=== PATIENT | male | born 1940 | race Caucasian/White ===

== ENCOUNTER 2016-12-07 11:39 | Emergency (ER) | payer MEDICARE, BC ==
[2014-05-04 12:06] VITALS: BMI 25.1
[~2016-12-07 11:39] MED LIST: ASPIRIN EC81 M1 PO; LEVOXYL75 MCG PO; OMEPRAZOLE PO; PEPCID40 MG PO; QUESTRAN LIG1 PACKET; SERTRALINE PO; SPIRIVA18 MCG INH; VENTOLIN HFA18 GM INH; WELLBUTRIN75 MG PO; ZOCOR40 MG PO
[2016-12-07 14:44] LABS: BASOPHILS 0.1 % (0-2); EOSINOPHILS 0.1 % (0-7); HEMATOCRIT 39.3 % (42.0-54.0); HEMOGLOBIN 13.6 g/dL (13.5-17.5); IMMATURE GRANULOCYTES 0.3 % (0-5); LYMPHOCYTES 3.3 % (15-50); MCH 33.6 pg (26.0-34.0); MCHC 34.6 g/dL (31.0-37.0); MEAN PLATELET VOLUME 11.5 fL (7.4-10.4); MONOCYTES 8.4 % (2-11); NEUTROPHILS 87.8 % (40-80); PLATELET COUNT 163 10x3/uL (130-400); RBC 4.05 10x6/uL (4.20-6.10); RDW 13.9 % (11.5-14.5); WBC 13.1 10x3/uL (4.8-10.8)
[2016-12-07 14:57] LABS: ANION GAP 10.9 mmol/L (8-16); BILIRUBIN - TOTAL 0.74 mg/dL (0.2-1.3); CALCIUM 8.6 mg/dL (8.5-10.1); CREATININE - SERUM 1.5 mg/dL (0.6-1.3); POTASSIUM - SERUM 3.9 mmol/L (3.5-5.1); PROTEIN - SERUM 7.8 g/dL (6.4-8.2)
== END 2016-12-07 17:19 | disposition home or self-care (01) ==
LOC: D.ER 11:39
PROVIDERS: Physician Assistant
DX: J44.1 Chronic obstructive pulmonary disease with (acute) exacerbation (principal); R53.1 Weakness; Z85.21 Personal history of malignant neoplasm of larynx

== ENCOUNTER 2017-05-13 18:07 | Inpatient (IN) | payer MEDICARE, BC ==
[~2017-05-13] VITALS: Ht 182.9 cm; Wt 65.8 kg
[2017-05-13 18:47] LABS: BASOPHILS 0.1 % (0-2); EOSINOPHILS 0.1 % (0-7); HEMATOCRIT 38.3 % (42.0-54.0); HEMOGLOBIN 12.9 g/dL (13.5-17.5); IMMATURE GRANULOCYTES 0.3 % (0-5); LYMPHOCYTES 3.6 % (15-50); MCH 31.9 pg (26.0-34.0); MCHC 33.7 g/dL (31.0-37.0); MCV 94.8 fL (80.0-100.0); MEAN PLATELET VOLUME 10.2 fL (7.4-10.4); MONOCYTES 1.8 % (2-11); NEUTROPHILS 94.1 % (40-80); RBC 4.04 10x6/uL (4.20-6.10); WBC 15.8 10x3/uL (4.8-10.8)
[2017-05-13 18:58] LABS: PLATELET COUNT 284 10x3/uL (130-400)
[2017-05-13 19:14] LABS: ALBUMIN 2.9 g/dL (3.4-5.0); ANION GAP 14.6 mmol/L (8-16); BILIRUBIN - TOTAL 0.45 mg/dL (0.2-1.3); CALCIUM 8.5 mg/dL (8.5-10.1); CARBON DIOXIDE 28.8 mmol/L (21.0-32.0); CREATININE - SERUM 1.4 mg/dL (0.6-1.3); POTASSIUM - SERUM 4.4 mmol/L (3.5-5.1); PROTEIN - SERUM 7.1 g/dL (6.4-8.2)
[2017-05-13 21:48] LABS: APPEARANCE CLEAR (CLEAR); BILIRUBIN NEGATIVE (NEGATIVE); COLOR DK YELLOW (YELLOW); GLUCOSE NEGATIVE (NEGATIVE); KETONE NEGATIVE (NEGATIVE); NITRITE NEGATIVE (NEGATIVE); PROTEIN TRACE mg/dL (NEGATIVE); SPECIFIC GRAVITY 1.005 (1.005-1.020); UROBILINOGEN NORMAL (NORMAL)
[2017-05-14] VITALS (7 sets, daily range): BP systolic 92–134; BP diastolic 49–71; Ht 182.9 cm; Wt 65.8 kg
[2017-05-14 05:42] LABS: BASOPHILS 0 % (0-2); EOSINOPHILS 0 % (0-7); HEMATOCRIT 34.7 % (42.0-54.0); HEMOGLOBIN 11.5 g/dL (13.5-17.5); IMMATURE GRANULOCYTES 0.2 % (0-5); LYMPHOCYTES 2.5 % (15-50); MCH 31.3 pg (26.0-34.0); MCHC 33.1 g/dL (31.0-37.0); MCV 94.6 fL (80.0-100.0); MEAN PLATELET VOLUME 10.1 fL (7.4-10.4); MONOCYTES 0.5 % (2-11); NEUTROPHILS 96.8 % (40-80); PLATELET COUNT 243 10x3/uL (130-400); RBC 3.67 10x6/uL (4.20-6.10); RDW 13.1 % (11.5-14.5); WBC 12.9 10x3/uL (4.8-10.8)
[2017-05-14 06:11] LABS: ALBUMIN 2.3 g/dL (3.4-5.0); ANION GAP 16.3 mmol/L (8-16); BILIRUBIN - TOTAL 0.4 mg/dL (0.2-1.3); CALCIUM 8.5 mg/dL (8.5-10.1); CREATININE - SERUM 1.3 mg/dL (0.6-1.3); POTASSIUM - SERUM 4.3 mmol/L (3.5-5.1)
[2017-05-15 04:03] VITALS: BP 98/50
[2017-05-15 05:26] LABS: BASOPHILS 0 % (0-2); EOSINOPHILS 0 % (0-7); HEMATOCRIT 31.9 % (42.0-54.0); HEMOGLOBIN 10.4 g/dL (13.5-17.5); IMMATURE GRANULOCYTES 0.2 % (0-5); LYMPHOCYTES 1.6 % (15-50); MCH 30.6 pg (26.0-34.0); MCHC 32.6 g/dL (31.0-37.0); MCV 93.8 fL (80.0-100.0); MEAN PLATELET VOLUME 10.6 fL (7.4-10.4); MONOCYTES 1.3 % (2-11); NEUTROPHILS 96.9 % (40-80); PLATELET COUNT 230 10x3/uL (130-400); RDW 12.8 % (11.5-14.5); WBC 13.5 10x3/uL (4.8-10.8)
[2017-05-15 05:46] LABS: ALBUMIN 2.3 g/dL (3.4-5.0); BILIRUBIN - TOTAL 0.26 mg/dL (0.2-1.3); CALCIUM 8.2 mg/dL (8.5-10.1); CARBON DIOXIDE 24.1 mmol/L (21.0-32.0); CREATININE - SERUM 1.3 mg/dL (0.6-1.3); PHOSPHOROUS 2.5 mg/dL (2.5-4.9); POTASSIUM - SERUM 4.1 mmol/L (3.5-5.1); PRE-ALBUMIN 15.8 mg/dL (18.0-35.7); PROTEIN - SERUM 6.6 g/dL (6.4-8.2)
[2017-05-15 07:42] VITALS: BP 97/48
[2017-05-15] MEDS ORDERED: SYNTHROID125 MCG PO (11:55)
[2017-05-15 15:35] VITALS: BP 103/49
[2017-05-15 21:13] VITALS: BP 102/47
[2017-05-15 23:47] VITALS: BP 119/61
[2017-05-16 04:00] VITALS: BP 118/53
[2017-05-16 08:37] VITALS: BP 103/49
[2017-05-16 11:39] VITALS: BP 108/55
[2017-05-16 15:40] VITALS: BP 108/45
[2017-05-16 20:41] VITALS: BP 116/53
[2017-05-17 00:50] VITALS: BP 137/70
[2017-05-17 04:30] VITALS: BP 138/74
[2017-05-17 08:19] VITALS: BP 131/86
[2017-05-17 11:13] LABS: BASOPHILS 0 % (0-2); EOSINOPHILS 0 % (0-7); HEMATOCRIT 35.4 % (42.0-54.0); HEMOGLOBIN 11.6 g/dL (13.5-17.5); IMMATURE GRANULOCYTES 0.7 % (0-5); LYMPHOCYTES 2.4 % (15-50); MCH 31.2 pg (26.0-34.0); MCHC 32.8 g/dL (31.0-37.0); MCV 95.2 fL (80.0-100.0); MEAN PLATELET VOLUME 11.1 fL (7.4-10.4); MONOCYTES 6.5 % (2-11); NEUTROPHILS 90.4 % (40-80); PLATELET COUNT 255 10x3/uL (130-400); RBC 3.72 10x6/uL (4.20-6.10); RDW 13.2 % (11.5-14.5); WBC 11.6 10x3/uL (4.8-10.8)
[2017-05-17 11:36] LABS: ALBUMIN 2.5 g/dL (3.4-5.0); ANION GAP 9.9 mmol/L (8-16); BILIRUBIN - TOTAL 0.39 mg/dL (0.2-1.3); CALCIUM 8.5 mg/dL (8.5-10.1); CARBON DIOXIDE 29.9 mmol/L (21.0-32.0); CREATININE - SERUM 1.2 mg/dL (0.6-1.3); POTASSIUM - SERUM 3.8 mmol/L (3.5-5.1)
[2017-05-17 13:21] VITALS: BP 138/72
[2017-05-17 16:32] VITALS: BP 144/84
[2017-05-17 20:00] VITALS: BP 130/68
[2017-05-18] VITALS: BP 123/68
[2017-05-18 04:00] VITALS: BP 136/62
[2017-05-18 04:35] LABS: BASOPHILS 0.1 % (0-2); EOSINOPHILS 0 % (0-7); HEMATOCRIT 34.1 % (42.0-54.0); HEMOGLOBIN 11.3 g/dL (13.5-17.5); IMMATURE GRANULOCYTES 1.3 % (0-5); LYMPHOCYTES 3.8 % (15-50); MCH 31.1 pg (26.0-34.0); MCHC 33.1 g/dL (31.0-37.0); MCV 93.9 fL (80.0-100.0); MEAN PLATELET VOLUME 10.9 fL (7.4-10.4); MONOCYTES 6.7 % (2-11); NEUTROPHILS 88.1 % (40-80); PLATELET COUNT 229 10x3/uL (130-400); RBC 3.63 10x6/uL (4.20-6.10); WBC 9.1 10x3/uL (4.8-10.8)
[2017-05-18 04:52] LABS: ALBUMIN 2.3 g/dL (3.4-5.0); BILIRUBIN - TOTAL 0.25 mg/dL (0.2-1.3); CALCIUM 8.2 mg/dL (8.5-10.1); CREATININE - SERUM 1.3 mg/dL (0.6-1.3); PROTEIN - SERUM 6.4 g/dL (6.4-8.2)
[2017-05-18 08:46] VITALS: BP 109/51
[2017-05-18 12:05] VITALS: BP 115/60
[2017-05-18 16:52] VITALS: BP 124/64
[2017-05-18 20:00] VITALS: BP 135/69
[2017-05-19 04:00] VITALS: BP 143/73
[2017-05-19 05:10] LABS: BASOPHILS 0.1 % (0-2); EOSINOPHILS 0 % (0-7); HEMATOCRIT 36.2 % (42.0-54.0); HEMOGLOBIN 11.8 g/dL (13.5-17.5); IMMATURE GRANULOCYTES 1.8 % (0-5); LYMPHOCYTES 4.9 % (15-50); MCH 31.1 pg (26.0-34.0); MCHC 32.6 g/dL (31.0-37.0); MCV 95.5 fL (80.0-100.0); MEAN PLATELET VOLUME 11.2 fL (7.4-10.4); MONOCYTES 6.6 % (2-11); NEUTROPHILS 86.6 % (40-80); PLATELET COUNT 238 10x3/uL (130-400); RBC 3.79 10x6/uL (4.20-6.10); RDW 13.2 % (11.5-14.5); WBC 7.8 10x3/uL (4.8-10.8)
[2017-05-19 05:22] LABS: ALBUMIN 2.5 g/dL (3.4-5.0); BILIRUBIN - TOTAL 0.3 mg/dL (0.2-1.3); CALCIUM 8.4 mg/dL (8.5-10.1); CREATININE - SERUM 1.2 mg/dL (0.6-1.3); PROTEIN - SERUM 6.5 g/dL (6.4-8.2)
[2017-05-19 08:09] VITALS: BP 139/65
[2017-05-19 11:48] VITALS: BP 132/68
[2017-05-19 15:56] VITALS: BP 107/59
[2017-05-19 21:24] VITALS: BP 122/65
[2017-05-20 04:04] VITALS: BP 159/74
[2017-05-20 04:17] VITALS: BP 159/74
[2017-05-20 05:41] LABS: BASOPHILS 0.1 % (0-2); EOSINOPHILS 0 % (0-7); HEMOGLOBIN 11.4 g/dL (13.5-17.5); IMMATURE GRANULOCYTES 1.5 % (0-5); MCHC 32.6 g/dL (31.0-37.0); MCV 95.1 fL (80.0-100.0); MEAN PLATELET VOLUME 11.4 fL (7.4-10.4); MONOCYTES 5.7 % (2-11); NEUTROPHILS 87.7 % (40-80); PLATELET COUNT 219 10x3/uL (130-400); RBC 3.68 10x6/uL (4.20-6.10); RDW 13.3 % (11.5-14.5); WBC 9.4 10x3/uL (4.8-10.8)
[2017-05-20 05:57] LABS: ALBUMIN 2.3 g/dL (3.4-5.0); ANION GAP 12.2 mmol/L (8-16); BILIRUBIN - TOTAL 0.2 mg/dL (0.2-1.3); CALCIUM 8.3 mg/dL (8.5-10.1); CREATININE - SERUM 1.2 mg/dL (0.6-1.3); POTASSIUM - SERUM 4.2 mmol/L (3.5-5.1); PROTEIN - SERUM 6.2 g/dL (6.4-8.2)
[2017-05-20 08:32] VITALS: BP 129/63
[2017-05-20 11:38] VITALS: BP 149/84
[2017-05-20] MEDS ORDERED: MIRALAX17 GM PO (11:48)
[2017-05-20] MEDS ORDERED: PEPCID20 MG PO (11:48)
[2017-05-20] MEDS ORDERED: FLORAJEN3 CAPS460 MG PO (11:48)
[2017-05-20] MEDS ORDERED: PULMICORT0.5 MG/21 UPD (11:49)
[2017-05-20] MEDS ORDERED: BENZONATATE200 MG PO (11:49)
[2017-05-20] MEDS ORDERED: BROVANA15 MCG/2 M INH (11:49)
[2017-05-20] MEDS ORDERED: ROBITUSSIN DM 110 ML PO (11:49)
[2017-05-20] MEDS ORDERED: PREDNISONE10 MG PO (11:51)
[2017-05-20] MEDS ORDERED: Wellbutrin PO (11:51)
[2017-05-20] MEDS ORDERED: Astelin NASAL SPRAY NASAL (11:51)
[2017-05-20] MEDS ORDERED: DOXYCYCLINE HY100 M2 PO (12:21)
== END 2017-05-20 13:22 | disposition home health service (06) | DRG 177 ==
LOC: D.ER 18:07 → D.EDHOLD 23:55 → D.MS 23:55
PROVIDERS: Emergency Medicine; Family Medicine; Internal Medicine Pulmonary Disease; Nurse Practitioner Family
DX: J15.6 Pneumonia due to other Gram-negative bacteria (principal); G93.41 Metabolic encephalopathy; J44.0 Chronic obstructive pulmonary disease with (acute) lower respiratory infection; J96.11 Chronic respiratory failure with hypoxia; E44.0 Moderate protein-calorie malnutrition; Z68.1 Body mass index [BMI] 19.9 or less, adult; J44.1 Chronic obstructive pulmonary disease with (acute) exacerbation; J20.9 Acute bronchitis, unspecified; K57.90 Diverticulosis of intestine, part unspecified, without perforation or abscess without bleeding; G47.33 Obstructive sleep apnea (adult) (pediatric); E78.5 Hyperlipidemia, unspecified; K21.9 Gastro-esophageal reflux disease without esophagitis; E03.9 Hypothyroidism, unspecified; K58.9 Irritable bowel syndrome, unspecified; J15.212 Pneumonia due to Methicillin resistant Staphylococcus aureus; N18.9 Chronic kidney disease, unspecified; Z87.891 Personal history of nicotine dependence; Z85.21 Personal history of malignant neoplasm of larynx; D64.9 Anemia, unspecified; R13.10 Dysphagia, unspecified; F41.9 Anxiety disorder, unspecified; J30.9 Allergic rhinitis, unspecified; G47.00 Insomnia, unspecified; K22.2 Esophageal obstruction

== ENCOUNTER 2017-08-21 08:44 | Inpatient (IN) | payer MEDICARE, BC ==
[2017-08-21] VITALS (7 sets, daily range): BP systolic 95–115; BP diastolic 51–67; BMI 18.9
[~2017-08-21] VITALS: Ht 182.9 cm; Wt 80.1 kg
--- NOTE | ~2017-08-21 | OP ---
PATIENT NAME: KEILA VALLEJO MEDICAL RECORD: [id number] :36 LOCATION:D.M2 D.2101 ADMISSION DATE:08/21/17 SURGEON: MARIA EUGENIA STOUT MD DATE OF OPERATION: 09/03/2017 PREOPERATIVE DIAGNOSES: 1. Bkxhq-sv-iwnbnsf renal failure. 2. Chronic obstructive pulmonary disease. 3. 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 4. Dysphagia. 5. Severe protein-calorie malnutrition. 6. Hypothyroidism. 7. Gastroesophageal reflux disease. POSTOPERATIVE DIAGNOSES: 1. Atrlg-ha-hskzfvc renal failure. 2. Chronic obstructive pulmonary disease. 3. 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 4. Dysphagia. 5. Severe protein-calorie malnutrition. 6. Hypothyroidism. 7. Gastroesophageal reflux disease. PROCEDURE: 1. Right IJ 19 cm HemoSplit placement. 2. Fluoroscopic interpretation. SURGEON: Maria Eugenia Stout MD REPORT OF PROCEDURE: The patient's right chest and indwelling right IJ Trialysis catheter were all prepped and draped in sterile fashion. The Trialysis catheter was released from its sutures and a wire was placed down through it. The Trialysis catheter was then removed and the wire left in position. Fluoroscopy was used to note that the wire was in good position in the venous system. A total of 10 mL of 1% lidocaine with epinephrine was infused in the surrounding tissues on the right chest and the 19-cm HemoSplit catheter was tunneled between an incision on the right chest and the wire exit site in the neck. The dilator trocar device was then placed over the wire and the wire and dilator were removed. The catheter tips were advanced through the trocar. The trocar was then removed and the catheter was pulled back into position to where it rested at the right atrial superior vena caval junction. The catheter aspirated nonpulsatile dark blood and flushed easily with heparinized saline. This was then sutured into place with 4-0 nylons and the skin incisions were closed with subcutaneous 5-0 Monocryl. COMPLICATIONS: None. CONDITION: Stable. ANESTHESIA: Local MAC. BLOOD LOSS: 30 mL. TRANSINT:[id number] Voice Confirmation ID: [id number] DOCUMENT ID: [id number] OPERATIVE REPORT [id number] KEILA VALLEJO MARIA EUGENIA STOUT MD at 0801 CC: [id number] DICTATION DATE: 09/03/17 1030 PUDDLER PILE DRIVING: 09/03/17 1122 ADM IN [facility] [address] [place], [facility]
--- NOTE | ~2017-08-21 | EC ---
PATIENT:KEILA VALLEJO DATE OF SERVICE: 08/21/17 SEX: M MEDICAL RECORD: [id number] DATE OF : 36 LOCATION:D.M2 D.212 AGE OF PATIENT: 77 ADMISSION DATE: 08/21/17 REFERRING PHYSICIAN: INTERPRETING PHYSICIAN: ROSA HOGAN MD ECHOCARDIOGRAM REPORT ECHO CHARGES 4 ECHO COMPLETE Date: 08/21 CLINICAL DIAGNOSIS: R/O CHF ECHOCARDIOGRAPHIC MEASUREMENTS (adult normal given) AC root (d.<3.7cm) 3.4 cm LV Septum d (<1.2 cm> 1.2 cm Valve Excursion 1.3 cm LV Septum (systole) 1.5 cm Left Atria (s.<4.0cm> 2.3 cm LVPW d(<1.2cm) 1.2 cm RV (d.<2.3cm) 2.2 cm LVPW (sytole) 1.8 cm LV diastole(<5.6CM) 4.8 cm MV E-F(>70mm/sec) cm LV systole 3.1 cm LVOT Diameter 1.7 cm MV exc.(>10mm) cm Est.ejection fraction (50-75%) % DOPPLER: LVIT cm/sec A 107 cm/sec E 74.0 cm/sec LA cm/sec RVSP 27.1 mmHg LVOT 91.0 cm/sec AOP1/2T 507.0m/s Asc. Ao 153 cm/sec RVOT 55.0 cm/sec RA cm/sec PA 76.0 cm/sec AV Gradient Peak 9.4 mmHg AV Mean 4.7 mmHg AV Area 1.1 cm MV Gradient Peak 6.0 mmHg MV Mean 1.8 mmHg MV Area cm COMMENTS: Mortician Helper: 1 CAMILA GARCIAOE Surveillance Specialist: 3 Dr. Crisostomo TAPE# PACS Pericardial Effusion N DATE OF SERVICE: Adequate 2-D echo, color flow and spectral Doppler, and M-mode. Borderline LVH. LV internal dimension is normal. LV appears to be mildly globally hypo with EF only mildly reduced. Estimated EF 45% to 50%. Aortic valve is tricuspid. No evidence of stenosis by Doppler interrogation. Left atrium normal at 2.3 cm. Mitral valve shows no prolapse. Trivial MR. Right-sided chambers are normal. Mild TR. ECHOCARDIOGRAM REPORT [id number] KEILA VALLEJO TRANSINT:[id number] Voice Confirmation ID: [id number] DOCUMENT ID: [id number] ROSA HOGAN MD at 0816 CC: [id number] DICTATION DATE: 08/22/17 0857 TEMPORARY HELP AGENCY REFERRAL CLERK: 08/22/17 1454 ADM IN [facility] [id number] [place] [address]
[~2017-08-21 08:44] MED LIST changes: +Astelin NASAL SPRAY NASAL; +BENZONATATE200 MG PO; +BROVANA15 MCG/2 M INH; +DOXYCYCLINE HY100 M2 PO; +FLORAJEN3 CAPS460 MG PO; +MIRALAX17 GM PO; +PEPCID20 MG PO; +PREDNISONE10 MG PO; +PULMICORT0.5 MG/21 UPD; +ROBITUSSIN DM 110 ML PO; +SYNTHROID125 MCG PO; +Wellbutrin PO
[2017-08-21] MEDS ORDERED: LEVOXYL100 MCG PO (08:51)
[2017-08-21] MEDS ORDERED: PROVENTIL/2.5 MG/3 M INH (08:52)
[2017-08-21] MEDS ORDERED: MUCOMYST 20200 MG/M2 INH (08:53)
[2017-08-21] MEDS ORDERED: REMERON45 MG PO (08:54)
[2017-08-21] MEDS ORDERED: FLOMAX0.4 MG PO (08:55)
[2017-08-21 09:29] LABS: BASOPHILS 0.2 % (0-2); EOSINOPHILS 0 % (0-7); HEMATOCRIT 36.6 % (42.0-54.0); HEMOGLOBIN 12.3 g/dL (13.5-17.5); IMMATURE GRANULOCYTES 4.8 % (0-5); LYMPHOCYTES 6.7 % (15-50); MCH 30.7 pg (26.0-34.0); MCHC 33.6 g/dL (31.0-37.0); MCV 91.3 fL (80.0-100.0); MEAN PLATELET VOLUME 10.5 fL (7.4-10.4); MONOCYTES 3.6 % (2-11); NEUTROPHILS 84.7 % (40-80); RBC 4.01 10x6/uL (4.20-6.10); RDW 14.2 % (11.5-14.5); WBC 4.2 10x3/uL (4.8-10.8)
[2017-08-21 09:31] LABS: PLATELET COUNT 136 10x3/uL (130-400)
[2017-08-21 09:44] LABS: ALBUMIN 2.8 g/dL (3.4-5.0); ANION GAP 12.5 mmol/L (8-16); BILIRUBIN - TOTAL 0.34 mg/dL (0.2-1.3); CALCIUM 9.1 mg/dL (8.5-10.1); CARBON DIOXIDE 24.7 mmol/L (21.0-32.0); CREATININE - SERUM 2.1 mg/dL (0.6-1.3); POTASSIUM - SERUM 4.2 mmol/L (3.5-5.1); PROTEIN - SERUM 7.8 g/dL (6.4-8.2)
[2017-08-21 11:18] LABS: % SATURATION 13 % (15-55); IRON 23 ug/dl (35-150); TOTAL IRON BIND CAPACITY 171 ug/dl (260-445); UNSAT IRON BIND CAPACITY 148 ug/dl (150-375)
[2017-08-21 11:56] LABS: MAGNESIUM - SERUM 1.8 mg/dL (1.8-2.4); T4 THYROXIN - FREE 1.08 ng/dL (0.76-1.46); THYROID STIMULATING HORMONE 6.14 uIU/mL (0.36-3.74)
[2017-08-21] MEDS ORDERED: SINGULAIR5 MG PO (13:48)
[2017-08-22 05:54] LABS: ALBUMIN 2.5 g/dL (3.4-5.0); ANION GAP 13.1 mmol/L (8-16); BILIRUBIN - TOTAL 0.38 mg/dL (0.2-1.3); CALCIUM 8.5 mg/dL (8.5-10.1); CARBON DIOXIDE 23.7 mmol/L (21.0-32.0); CREATININE - SERUM 1.8 mg/dL (0.6-1.3); POTASSIUM - SERUM 3.8 mmol/L (3.5-5.1); PRE-ALBUMIN 14.7 mg/dL (18.0-35.7); PROTEIN - SERUM 7.1 g/dL (6.4-8.2)
[2017-08-22 05:56] LABS: BASOPHILS 0.3 % (0-2); EOSINOPHILS 0 % (0-7); HEMATOCRIT 33.3 % (42.0-54.0); HEMOGLOBIN 11.2 g/dL (13.5-17.5); IMMATURE GRANULOCYTES 2.1 % (0-5); LYMPHOCYTES 9.2 % (15-50); MCH 30.4 pg (26.0-34.0); MCHC 33.6 g/dL (31.0-37.0); MCV 90.5 fL (80.0-100.0); MEAN PLATELET VOLUME 11.3 fL (7.4-10.4); MONOCYTES 3.1 % (2-11); NEUTROPHILS 85.3 % (40-80); RBC 3.68 10x6/uL (4.20-6.10); RDW 14.2 % (11.5-14.5); WBC 3.3 10x3/uL (4.8-10.8)
[2017-08-22 05:57] LABS: PLATELET COUNT 108 10x3/uL (130-400)
[2017-08-22 06:14] VITALS: BP 108/56
[2017-08-22 06:33] VITALS: BP 143/79
[2017-08-22 07:40] VITALS: BP 105/50
[2017-08-22 11:19] VITALS: BP 120/48
[2017-08-22 15:35] VITALS: BP 95/51
[2017-08-22 15:45] LABS: APPEARANCE HAZY (CLEAR); COLOR DK YELLOW (YELLOW); GLUCOSE NEGATIVE (NEGATIVE); NITRITE NEGATIVE (NEGATIVE); PROTEIN 1+ mg/dL (NEGATIVE); SPECIFIC GRAVITY 1.015 (1.005-1.020)
[2017-08-22 15:46] LABS: BILIRUBIN NEGATIVE (NEGATIVE); KETONE NEGATIVE (NEGATIVE); UROBILINOGEN NORMAL (NORMAL)
[2017-08-22 15:47] LABS: BACTERIA MODERATE /hpf (NONE SEEN); EPITHELIAL CELLS 0-5 /hpf (0-5); RED CELLS - URINE 0-5 /hpf (0-5); WHITE CELLS - URINE 0-5 /hpf (0-5)
[2017-08-22 15:48] LABS: AMORPHOUS SEDIMENT <1+ /lpf (NONE SEEN)
[2017-08-22 20:21] VITALS: BP 100/57
[2017-08-23 02:14] VITALS: BP 125/66
[2017-08-23 05:15] VITALS: BP 130/67
[2017-08-23 06:31] LABS: BASOPHILS 0.6 % (0-2); EOSINOPHILS 0 % (0-7); HEMATOCRIT 32.7 % (42.0-54.0); HEMOGLOBIN 10.8 g/dL (13.5-17.5); IMMATURE GRANULOCYTES 0.9 % (0-5); MCH 29.8 pg (26.0-34.0); MCV 90.1 fL (80.0-100.0); MEAN PLATELET VOLUME 11.7 fL (7.4-10.4); MONOCYTES 6.1 % (2-11); NEUTROPHILS 77.4 % (40-80); RBC 3.63 10x6/uL (4.20-6.10); RDW 14.4 % (11.5-14.5); WBC 3.3 10x3/uL (4.8-10.8)
[2017-08-23 06:35] LABS: PLATELET COUNT 73 10x3/uL (130-400)
[2017-08-23 06:58] LABS: ANION GAP 13.2 mmol/L (8-16); BILIRUBIN - TOTAL 0.51 mg/dL (0.2-1.3); CARBON DIOXIDE 23.4 mmol/L (21.0-32.0); CREATININE - SERUM 1.5 mg/dL (0.6-1.3); POTASSIUM - SERUM 3.6 mmol/L (3.5-5.1); PROTEIN - SERUM 6.3 g/dL (6.4-8.2)
[2017-08-23 08:14] LABS: PLATELET ESTIMATE DECREASED
[2017-08-23 08:34] VITALS: BP 129/66
[2017-08-23 12:24] VITALS: BMI 18.8
[2017-08-23 16:34] VITALS: BP 134/72
[2017-08-24 04:47] LABS: ALBUMIN 1.8 g/dL (3.4-5.0); ANION GAP 15.4 mmol/L (8-16); BILIRUBIN - TOTAL 0.4 mg/dL (0.2-1.3); CALCIUM 7.6 mg/dL (8.5-10.1); CARBON DIOXIDE 22.4 mmol/L (21.0-32.0); POTASSIUM - SERUM 3.8 mmol/L (3.5-5.1); PROTEIN - SERUM 5.9 g/dL (6.4-8.2)
[2017-08-24 05:22] LABS: BASOPHILS 0.3 % (0-2); EOSINOPHILS 0 % (0-7); HEMATOCRIT 30.6 % (42.0-54.0); IMMATURE GRANULOCYTES 0.5 % (0-5); LYMPHOCYTES 16.8 % (15-50); MCH 29.2 pg (26.0-34.0); MCHC 32.7 g/dL (31.0-37.0); MCV 89.2 fL (80.0-100.0); MEAN PLATELET VOLUME 12.8 fL (7.4-10.4); MONOCYTES 2.8 % (2-11); NEUTROPHILS 79.6 % (40-80); RBC 3.43 10x6/uL (4.20-6.10); RDW 14.8 % (11.5-14.5); WBC 3.9 10x3/uL (4.8-10.8)
[2017-08-24 05:30] LABS: PLATELET COUNT 49 10x3/uL (130-400)
[2017-08-24 06:02] VITALS: BP 127/63
[2017-08-24 08:47] VITALS: BP 136/73
[2017-08-24 12:38] VITALS: BP 118/56
[2017-08-24 13:17] LABS: FOLATE (FOLIC ACID) - SERUM 15.6 ng/mL (>3.0)
[2017-08-24 16:27] VITALS: BP 107/45
[2017-08-24 22:07] VITALS: BP 93/43
[2017-08-25] VITALS (7 sets, daily range): BP systolic 83–118; BP diastolic 41–58; Ht 182.9 cm; Wt 80.1 kg
[2017-08-25 05:45] LABS: BASOPHILS 0.2 % (0-2); EOSINOPHILS 0 % (0-7); HEMATOCRIT 28.5 % (42.0-54.0); HEMOGLOBIN 9.5 g/dL (13.5-17.5); IMMATURE GRANULOCYTES 0.5 % (0-5); LYMPHOCYTES 8.1 % (15-50); MCH 29.5 pg (26.0-34.0); MCHC 33.3 g/dL (31.0-37.0); MCV 88.5 fL (80.0-100.0); MONOCYTES 3.5 % (2-11); NEUTROPHILS 87.7 % (40-80); RBC 3.22 10x6/uL (4.20-6.10)
[2017-08-25 06:07] LABS: ALBUMIN 1.5 g/dL (3.4-5.0); ANION GAP 17.2 mmol/L (8-16); BILIRUBIN - TOTAL 0.41 mg/dL (0.2-1.3); CALCIUM 7.2 mg/dL (8.5-10.1); CARBON DIOXIDE 19.5 mmol/L (21.0-32.0); POTASSIUM - SERUM 3.7 mmol/L (3.5-5.1); PROTEIN - SERUM 5.1 g/dL (6.4-8.2)
[2017-08-25 06:26] LABS: WBC 5.8 10x3/uL (4.8-10.8)
[2017-08-25 06:27] LABS: PLATELET COUNT 34 10x3/uL (130-400)
[2017-08-25 07:15] LABS: APPEARANCE SLT CLOUDY (CLEAR); BILIRUBIN NEGATIVE (NEGATIVE); COLOR YELLOW (YELLOW); GLUCOSE NEGATIVE (NEGATIVE); KETONE NEGATIVE (NEGATIVE); NITRITE NEGATIVE (NEGATIVE); PROTEIN 1+ mg/dL (NEGATIVE); SPECIFIC GRAVITY 1.015 (1.005-1.020); UROBILINOGEN NORMAL (NORMAL); WHITE CELLS - URINE 0-5 /hpf (0-5)
[2017-08-25 07:16] LABS: AMORPHOUS SEDIMENT <1+ /lpf (NONE SEEN); BACTERIA MODERATE /hpf (NONE SEEN); EPITHELIAL CELLS 0-5 /hpf (0-5); GRANULAR CAST 0-5 /lpf (NONE SEEN); MUCUS <1+ /lpf (NONE SEEN); RED CELLS - URINE 0-5 /hpf (0-5)
[2017-08-25 11:44] LABS: INR 2.43 (0.85-1.17); PROTIME 25.8 SECONDS (11.6-15.0)
[2017-08-25 14:42] LABS: APTT 76.8 SECONDS (22.8-39.4)
[2017-08-25 15:43] LABS: ERYTHROCYTE SEDIMENTATION RATE 47 mm/hr (0-20)
[2017-08-26 05:53] LABS: BASOPHILS 0.2 % (0-2); EOSINOPHILS 0 % (0-7); HEMATOCRIT 23.3 % (42.0-54.0); HEMOGLOBIN 7.8 g/dL (13.5-17.5); IMMATURE GRANULOCYTES 0.4 % (0-5); LYMPHOCYTES 12.2 % (15-50); MCHC 33.5 g/dL (31.0-37.0); MCV 86.6 fL (80.0-100.0); NEUTROPHILS 85.2 % (40-80); RBC 2.69 10x6/uL (4.20-6.10); RDW 15.3 % (11.5-14.5); WBC 5.4 10x3/uL (4.8-10.8)
[2017-08-26 05:58] VITALS: BP 102/54
[2017-08-26 06:11] LABS: ALBUMIN 1.6 g/dL (3.4-5.0); ANION GAP 17.7 mmol/L (8-16); BILIRUBIN - TOTAL 0.34 mg/dL (0.2-1.3); CARBON DIOXIDE 16.1 mmol/L (21.0-32.0); CREATININE - SERUM 4.8 mg/dL (0.6-1.3); POTASSIUM - SERUM 3.8 mmol/L (3.5-5.1); PROTEIN - SERUM 5.1 g/dL (6.4-8.2)
[2017-08-26 06:14] LABS: APTT 56.3 SECONDS (22.8-39.4); INR 1.18 (0.85-1.17); PLATELET COUNT 49 10x3/uL (130-400); PROTIME 14.6 SECONDS (11.6-15.0)
[2017-08-26 07:58] LABS: APPEARANCE CLOUDY (CLEAR); COLOR YELLOW (YELLOW)
[2017-08-26 08:00] LABS: BACTERIA MODERATE /hpf (NONE SEEN); BILIRUBIN NEGATIVE (NEGATIVE); EPITHELIAL CELLS 0-5 /hpf (0-5); GLUCOSE NEGATIVE (NEGATIVE); KETONE NEGATIVE (NEGATIVE); NITRITE NEGATIVE (NEGATIVE); PROTEIN TRACE mg/dL (NEGATIVE); RED CELLS - URINE 0-5 /hpf (0-5); UROBILINOGEN NORMAL (NORMAL); WHITE CELLS - URINE OCC /hpf (0-5)
[2017-08-26 08:01] LABS: AMORPHOUS SEDIMENT >1+ /lpf (NONE SEEN); CALCIUM OXALATE CRYSTALS RARE /hpf (NONE SEEN); GRANULAR CAST 0-5 /lpf (NONE SEEN); MUCUS <1+ /lpf (NONE SEEN)
[2017-08-26 09:31] VITALS: BP 98/58
[2017-08-26 13:41] VITALS: BP 91/51
[2017-08-26 17:08] VITALS: BP 93/55
[2017-08-26 21:09] VITALS: BP 118/58
[2017-08-27 00:37] VITALS: BP 116/64
[2017-08-27 06:18] VITALS: BP 107/66
[2017-08-27 08:20] LABS: HEPATITIS C ANTIBODY <0.1 (0.0-0.9)
[2017-08-27 09:23] VITALS: BP 97/54
[2017-08-27 11:50] VITALS: BP 78/42
[2017-08-27 13:37] LABS: BASOPHILS 0.4 % (0-2); EOSINOPHILS 0.2 % (0-7); IMMATURE GRANULOCYTES 0.6 % (0-5); MCHC 35.5 g/dL (31.0-37.0); MCV 84.7 fL (80.0-100.0); MONOCYTES 7.2 % (2-11); NEUTROPHILS 72.6 % (40-80); RDW 15.5 % (11.5-14.5)
[2017-08-27 13:41] LABS: HEMATOCRIT 29.9 % (42.0-54.0); HEMOGLOBIN 10.6 g/dL (13.5-17.5); RBC 3.53 10x6/uL (4.20-6.10)
[2017-08-27 13:42] LABS: PLATELET COUNT 39 10x3/uL (130-400)
[2017-08-27 14:17] LABS: ALBUMIN 1.4 g/dL (3.4-5.0); ANION GAP 19.7 mmol/L (8-16); BILIRUBIN - TOTAL 0.59 mg/dL (0.2-1.3); CARBON DIOXIDE 14.3 mmol/L (21.0-32.0); CREATININE - SERUM 5.6 mg/dL (0.6-1.3); PROTEIN - SERUM 4.4 g/dL (6.4-8.2)
[2017-08-27 14:20] LABS: CALCIUM 6.9 mg/dL (8.5-10.1)
[2017-08-27 15:48] VITALS: BP 119/64
[2017-08-27 21:37] VITALS: BP 111/60
[2017-08-27 22:12] LABS: ANA REFLEX - DIRECT Negative (Negative)
[2017-08-28 01:32] VITALS: BP 95/56
[2017-08-28 05:22] LABS: BASOPHILS 0.2 % (0-2); EOSINOPHILS 0.2 % (0-7); HEMATOCRIT 30.7 % (42.0-54.0); HEMOGLOBIN 10.9 g/dL (13.5-17.5); IMMATURE GRANULOCYTES 0.2 % (0-5); LYMPHOCYTES 26.2 % (15-50); MCH 29.5 pg (26.0-34.0); MCHC 35.5 g/dL (31.0-37.0); MCV 83.2 fL (80.0-100.0); MONOCYTES 7.2 % (2-11); RBC 3.69 10x6/uL (4.20-6.10); RDW 15.1 % (11.5-14.5); WBC 4.7 10x3/uL (4.8-10.8)
[2017-08-28 05:32] LABS: PLATELET COUNT 46 10x3/uL (130-400)
[2017-08-28 06:11] VITALS: BP 108/55
[2017-08-28 06:24] LABS: ALBUMIN 1.4 g/dL (3.4-5.0); BILIRUBIN - TOTAL 0.8 mg/dL (0.2-1.3); CALCIUM 7.3 mg/dL (8.5-10.1); CREATININE - SERUM 5.8 mg/dL (0.6-1.3); POTASSIUM - SERUM 3.9 mmol/L (3.5-5.1); PROTEIN - SERUM 4.7 g/dL (6.4-8.2)
[2017-08-28 06:27] LABS: ANION GAP 15.4 mmol/L (8-16); CARBON DIOXIDE 18.5 mmol/L (21.0-32.0)
[2017-08-28 09:07] VITALS: BP 109/61
[2017-08-28 10:58] LABS: ERYTHROCYTE SEDIMENTATION RATE 12 mm/hr (0-20)
[2017-08-28 12:29] VITALS: BP 90/53
[2017-08-28 16:54] VITALS: BP 93/58
[2017-08-29] VITALS: BP 139/69
[2017-08-29 04:00] VITALS: BP 103/57
[2017-08-29 05:05] LABS: BASOPHILS 0.2 % (0-2); EOSINOPHILS 0.4 % (0-7); HEMATOCRIT 29.2 % (42.0-54.0); HEMOGLOBIN 10.6 g/dL (13.5-17.5); IMMATURE GRANULOCYTES 0.4 % (0-5); LYMPHOCYTES 27.3 % (15-50); MCH 29.7 pg (26.0-34.0); MCHC 36.3 g/dL (31.0-37.0); MCV 81.8 fL (80.0-100.0); MONOCYTES 9.4 % (2-11); NEUTROPHILS 62.3 % (40-80); RBC 3.57 10x6/uL (4.20-6.10); RDW 14.8 % (11.5-14.5); WBC 5.7 10x3/uL (4.8-10.8)
[2017-08-29 05:12] LABS: PLATELET COUNT 66 10x3/uL (130-400)
[2017-08-29 05:37] LABS: ALBUMIN 1.4 g/dL (3.4-5.0); BILIRUBIN - TOTAL 0.75 mg/dL (0.2-1.3); CREATININE - SERUM 5.2 mg/dL (0.6-1.3); POTASSIUM - SERUM 3.8 mmol/L (3.5-5.1); PROTEIN - SERUM 4.7 g/dL (6.4-8.2)
[2017-08-29 05:38] LABS: ANION GAP 13.3 mmol/L (8-16); CARBON DIOXIDE 23.5 mmol/L (21.0-32.0)
[2017-08-29 05:39] LABS: CALCIUM 6.6 mg/dL (8.5-10.1)
[2017-08-29 08:43] VITALS: BP 107/58
[2017-08-29 11:19] VITALS: BP 109/64
[2017-08-29 15:27] VITALS: BP 116/69
[2017-08-29 20:00] VITALS: BP 123/66
[2017-08-30] VITALS: BP 103/56
[2017-08-30 04:00] VITALS: BP 112/69
[2017-08-30 04:52] LABS: BASOPHILS 0.2 % (0-2); EOSINOPHILS 1.6 % (0-7); HEMATOCRIT 26.9 % (42.0-54.0); HEMOGLOBIN 9.6 g/dL (13.5-17.5); IMMATURE GRANULOCYTES 0.7 % (0-5); LYMPHOCYTES 29.5 % (15-50); MCH 29.4 pg (26.0-34.0); MCHC 35.7 g/dL (31.0-37.0); MCV 82.3 fL (80.0-100.0); PLATELET COUNT 76 10x3/uL (130-400); RBC 3.27 10x6/uL (4.20-6.10); WBC 5.8 10x3/uL (4.8-10.8)
[2017-08-30 05:39] LABS: ALBUMIN 1.4 g/dL (3.4-5.0); BILIRUBIN - TOTAL 0.75 mg/dL (0.2-1.3); CARBON DIOXIDE 23.3 mmol/L (21.0-32.0); CREATININE - SERUM 5.9 mg/dL (0.6-1.3); POTASSIUM - SERUM 4.3 mmol/L (3.5-5.1); PROTEIN - SERUM 4.7 g/dL (6.4-8.2)
[2017-08-30 05:41] LABS: CALCIUM 6.7 mg/dL (8.5-10.1)
[2017-08-30 08:47] VITALS: BP 120/71
[2017-08-30 20:29] VITALS: BP 111/67
[2017-08-31] VITALS (7 sets, daily range): BP systolic 76–134; BP diastolic 43–87
[2017-08-31 05:53] LABS: BASOPHILS 0.2 % (0-2); EOSINOPHILS 2.9 % (0-7); HEMATOCRIT 24.6 % (42.0-54.0); HEMOGLOBIN 8.9 g/dL (13.5-17.5); LYMPHOCYTES 27.1 % (15-50); MCH 29.8 pg (26.0-34.0); MCHC 36.2 g/dL (31.0-37.0); MCV 82.3 fL (80.0-100.0); MEAN PLATELET VOLUME 12.6 fL (7.4-10.4); MONOCYTES 8.8 % (2-11); RBC 2.99 10x6/uL (4.20-6.10); RDW 15.3 % (11.5-14.5); WBC 6.2 10x3/uL (4.8-10.8)
[2017-08-31 06:15] LABS: ALBUMIN 1.3 g/dL (3.4-5.0); ANION GAP 16.1 mmol/L (8-16); BILIRUBIN - TOTAL 0.77 mg/dL (0.2-1.3); CARBON DIOXIDE 21.7 mmol/L (21.0-32.0); CREATININE - SERUM 6.4 mg/dL (0.6-1.3); POTASSIUM - SERUM 4.8 mmol/L (3.5-5.1); PROTEIN - SERUM 4.6 g/dL (6.4-8.2)
[2017-08-31 06:16] LABS: PLATELET COUNT 93 10x3/uL (130-400)
[2017-08-31 06:45] LABS: CALCIUM 6.4 mg/dL (8.5-10.1)
[2017-09-01 00:32] VITALS: BP 129/59
[2017-09-01 04:42] LABS: BASOPHILS 0.1 % (0-2); EOSINOPHILS 3.4 % (0-7); HEMATOCRIT 24.7 % (42.0-54.0); HEMOGLOBIN 8.8 g/dL (13.5-17.5); IMMATURE GRANULOCYTES 1.3 % (0-5); LYMPHOCYTES 26.6 % (15-50); MCH 29.5 pg (26.0-34.0); MCHC 35.6 g/dL (31.0-37.0); MCV 82.9 fL (80.0-100.0); MEAN PLATELET VOLUME 11.7 fL (7.4-10.4); NEUTROPHILS 58.6 % (40-80); PLATELET COUNT 102 10x3/uL (130-400); RBC 2.98 10x6/uL (4.20-6.10); RDW 15.5 % (11.5-14.5); WBC 6.7 10x3/uL (4.8-10.8)
[2017-09-01 04:52] LABS: APTT 50.8 SECONDS (22.8-39.4); INR 1.15 (0.85-1.17); PROTIME 14.3 SECONDS (11.6-15.0)
[2017-09-01 04:57] LABS: ALBUMIN 1.3 g/dL (3.4-5.0); BILIRUBIN - TOTAL 0.77 mg/dL (0.2-1.3); CARBON DIOXIDE 26.2 mmol/L (21.0-32.0); CREATININE - SERUM 5.6 mg/dL (0.6-1.3); POTASSIUM - SERUM 5.2 mmol/L (3.5-5.1); PROTEIN - SERUM 4.7 g/dL (6.4-8.2)
[2017-09-01 05:07] VITALS: BP 115/65
[2017-09-01 05:24] LABS: CALCIUM 6.7 mg/dL (8.5-10.1)
[2017-09-01 08:49] VITALS: BP 115/68
[2017-09-01 11:16] VITALS: BP 121/62
[2017-09-01 15:50] VITALS: BP 124/56
[2017-09-01 16:11] LABS: MITOCHONDRIAL ANTIBODY 8.5 Units (0.0-20.0)
[2017-09-01 20:56] VITALS: BP 109/60
[2017-09-02 00:46] VITALS: BP 147/71
[2017-09-02 05:03] VITALS: BP 132/73
[2017-09-02 05:26] LABS: BASOPHILS 0.1 % (0-2); EOSINOPHILS 2.4 % (0-7); HEMATOCRIT 26.2 % (42.0-54.0); HEMOGLOBIN 9.2 g/dL (13.5-17.5); IMMATURE GRANULOCYTES 1.6 % (0-5); LYMPHOCYTES 21.1 % (15-50); MCH 29.5 pg (26.0-34.0); MCHC 35.1 g/dL (31.0-37.0); MEAN PLATELET VOLUME 11.3 fL (7.4-10.4); MONOCYTES 11.1 % (2-11); NEUTROPHILS 63.7 % (40-80); PLATELET COUNT 111 10x3/uL (130-400); RBC 3.12 10x6/uL (4.20-6.10); RDW 16.1 % (11.5-14.5); WBC 7.4 10x3/uL (4.8-10.8)
[2017-09-02 05:46] LABS: ANION GAP 11.3 mmol/L (8-16); CARBON DIOXIDE 27.5 mmol/L (21.0-32.0); CREATININE - SERUM 5.2 mg/dL (0.6-1.3); POTASSIUM - SERUM 5.8 mmol/L (3.5-5.1)
[2017-09-02 06:05] LABS: CALCIUM 6.5 mg/dL (8.5-10.1)
[2017-09-02 07:32] LABS: SMOOTH MUSCLE ABS (ACTIN) 14 Units (0-19)
[2017-09-02 18:08] LABS: SPE - A/G RATIO 0.6 (0.7-1.7); SPE - ALBUMIN 1.7 g/dL (2.9-4.4); SPE - ALPHA-1 GLOBULIN 0.3 g/dL (0.0-0.4); SPE - ALPHA-2 GLOBULIN 0.8 g/dL (0.4-1.0); SPE - BETA GLOBULIN 0.7 g/dL (0.7-1.3); SPE - GAMMA GLOBULIN 0.9 g/dL (0.4-1.8); SPE - M-SPIKE Not Observed g/dL (Not Observed); SPE - TOTAL PROTEIN 4.4 g/dL (6.0-8.5)
[2017-09-02 21:06] LABS: AFB SPECIMEN PROCESSING Concentration (())
[2017-09-02 21:35] VITALS: BP 143/72
[2017-09-03 05:05] VITALS: BP 134/73
[2017-09-03 07:29] LABS: BASOPHILS 0.1 % (0-2); EOSINOPHILS 1.5 % (0-7); HEMATOCRIT 25.4 % (42.0-54.0); HEMOGLOBIN 8.5 g/dL (13.5-17.5); IMMATURE GRANULOCYTES 1.9 % (0-5); LYMPHOCYTES 17.8 % (15-50); MCH 28.8 pg (26.0-34.0); MCHC 33.5 g/dL (31.0-37.0); MEAN PLATELET VOLUME 11.3 fL (7.4-10.4); MONOCYTES 12.6 % (2-11); NEUTROPHILS 66.1 % (40-80); PLATELET COUNT 127 10x3/uL (130-400); RBC 2.95 10x6/uL (4.20-6.10); WBC 7.2 10x3/uL (4.8-10.8)
[2017-09-03 07:32] LABS: MCV 86.1 fL (80.0-100.0)
[2017-09-03 07:47] LABS: ANION GAP 12.2 mmol/L (8-16); CARBON DIOXIDE 27.4 mmol/L (21.0-32.0); CREATININE - SERUM 4.9 mg/dL (0.6-1.3); POTASSIUM - SERUM 5.6 mmol/L (3.5-5.1)
[2017-09-03 07:51] LABS: CALCIUM 6.9 mg/dL (8.5-10.1)
[2017-09-03 08:16] VITALS: BP 148/70
[2017-09-03 15:29] VITALS: BP 140/66
[2017-09-03 20:00] VITALS: BP 144/73
[2017-09-04] VITALS: BP 146/87
[2017-09-04 04:00] VITALS: BP 144/70
[2017-09-04 05:06] LABS: BASOPHILS 0.1 % (0-2); EOSINOPHILS 1.3 % (0-7); HEMATOCRIT 27.6 % (42.0-54.0); HEMOGLOBIN 9.3 g/dL (13.5-17.5); IMMATURE GRANULOCYTES 1.7 % (0-5); LYMPHOCYTES 15.6 % (15-50); MCH 29.5 pg (26.0-34.0); MCHC 33.7 g/dL (31.0-37.0); MCV 87.6 fL (80.0-100.0); MONOCYTES 11.6 % (2-11); NEUTROPHILS 69.7 % (40-80); PLATELET COUNT 144 10x3/uL (130-400); RBC 3.15 10x6/uL (4.20-6.10); RDW 16.1 % (11.5-14.5); WBC 7.2 10x3/uL (4.8-10.8)
[2017-09-04 05:34] LABS: ANION GAP 11.8 mmol/L (8-16); CARBON DIOXIDE 27.2 mmol/L (21.0-32.0); CREATININE - SERUM 4.5 mg/dL (0.6-1.3)
[2017-09-04 09:13] VITALS: BP 144/72
[2017-09-04 16:38] VITALS: BP 137/66
[2017-09-04 21:26] VITALS: BP 148/78
[2017-09-05 00:45] VITALS: BP 153/72
[2017-09-05 06:16] LABS: BASOPHILS 0.1 % (0-2); EOSINOPHILS 1.1 % (0-7); HEMATOCRIT 25.1 % (42.0-54.0); HEMOGLOBIN 8.3 g/dL (13.5-17.5); IMMATURE GRANULOCYTES 1.1 % (0-5); LYMPHOCYTES 13.5 % (15-50); MCH 29.3 pg (26.0-34.0); MCHC 33.1 g/dL (31.0-37.0); MCV 88.7 fL (80.0-100.0); MEAN PLATELET VOLUME 10.2 fL (7.4-10.4); NEUTROPHILS 73.2 % (40-80); PLATELET COUNT 139 10x3/uL (130-400); RBC 2.83 10x6/uL (4.20-6.10); RDW 16.1 % (11.5-14.5); WBC 7.3 10x3/uL (4.8-10.8)
[2017-09-05 06:29] VITALS: BP 142/84
[2017-09-05 06:33] LABS: ANION GAP 7.7 mmol/L (8-16); CALCIUM 7.3 mg/dL (8.5-10.1); POTASSIUM - SERUM 4.7 mmol/L (3.5-5.1)
[2017-09-05 06:34] LABS: CREATININE - SERUM 3.3 mg/dL (0.6-1.3)
[2017-09-05 08:57] VITALS: BP 97/70
[2017-09-05 11:29] LABS: ALBUMIN 1.4 g/dL (3.4-5.0); BILIRUBIN - DIRECT 0.09 mg/dL (0.00-0.30); BILIRUBIN - INDIRECT 0.32 mg/dL (0.00-1.00); BILIRUBIN - TOTAL 0.41 mg/dL (0.2-1.3); PHOSPHOROUS 4.6 mg/dL (2.5-4.9); PROTEIN - SERUM 5.3 g/dL (6.4-8.2)
[2017-09-05 12:33] VITALS: BP 130/65
[2017-09-05 16:08] VITALS: BP 134/74
[2017-09-05 20:00] VITALS: BP 121/64
[2017-09-06] VITALS: BP 131/63
[2017-09-06 04:00] VITALS: BP 134/68
[2017-09-06 04:14] LABS: BASOPHILS 0.1 % (0-2); EOSINOPHILS 1.6 % (0-7); HEMATOCRIT 22.5 % (42.0-54.0); IMMATURE GRANULOCYTES 0.7 % (0-5); LYMPHOCYTES 20.5 % (15-50); MCH 29.5 pg (26.0-34.0); MCHC 32.9 g/dL (31.0-37.0); MCV 89.6 fL (80.0-100.0); MEAN PLATELET VOLUME 10.2 fL (7.4-10.4); MONOCYTES 6.2 % (2-11); NEUTROPHILS 70.9 % (40-80); PLATELET COUNT 130 10x3/uL (130-400); RBC 2.51 10x6/uL (4.20-6.10); RDW 16.1 % (11.5-14.5)
[2017-09-06 04:21] LABS: HEMOGLOBIN 7.4 g/dL (13.5-17.5)
[2017-09-06 04:44] LABS: ALBUMIN 1.4 g/dL (3.4-5.0); ANION GAP 9.7 mmol/L (8-16); BILIRUBIN - TOTAL 0.47 mg/dL (0.2-1.3); CALCIUM 7.3 mg/dL (8.5-10.1); CREATININE - SERUM 4.2 mg/dL (0.6-1.3); POTASSIUM - SERUM 4.7 mmol/L (3.5-5.1); PROTEIN - SERUM 5.2 g/dL (6.4-8.2)
[2017-09-06 08:54] VITALS: BP 144/80
[2017-09-06 12:01] VITALS: BP 120/60
[2017-09-06 17:13] LABS: FUNGUS STAIN Final report (())
[2017-09-06 20:00] VITALS: BP 145/75
[2017-09-07 04:00] VITALS: BP 140/71
[2017-09-07 11:05] LABS: BASOPHILS 0.2 % (0-2); EOSINOPHILS 1.4 % (0-7); IMMATURE GRANULOCYTES 0.5 % (0-5); MCH 29.8 pg (26.0-34.0); MCHC 33.3 g/dL (31.0-37.0); MCV 89.3 fL (80.0-100.0); MEAN PLATELET VOLUME 10.5 fL (7.4-10.4); MONOCYTES 5.4 % (2-11); NEUTROPHILS 69.5 % (40-80); PLATELET COUNT 132 10x3/uL (130-400); RDW 15.8 % (11.5-14.5)
[2017-09-07 11:09] LABS: HEMATOCRIT 33.3 % (42.0-54.0); HEMOGLOBIN 11.1 g/dL (13.5-17.5); RBC 3.73 10x6/uL (4.20-6.10); WBC 9.8 10x3/uL (4.8-10.8)
[2017-09-07 11:34] LABS: ANION GAP 12.4 mmol/L (8-16); BILIRUBIN - TOTAL 0.72 mg/dL (0.2-1.3); CALCIUM 7.9 mg/dL (8.5-10.1); CARBON DIOXIDE 31.6 mmol/L (21.0-32.0)
[2017-09-07 11:37] LABS: ALBUMIN 1.8 g/dL (3.4-5.0); CREATININE - SERUM 5.3 mg/dL (0.6-1.3)
[2017-09-07 20:00] VITALS: BP 142/82
[2017-09-08] VITALS: BP 146/85
[2017-09-08 04:00] VITALS: BP 183/99
[2017-09-08 05:19] LABS: ALBUMIN 1.9 g/dL (3.4-5.0); ANION GAP 11.5 mmol/L (8-16); BILIRUBIN - TOTAL 0.78 mg/dL (0.2-1.3); CALCIUM 8.6 mg/dL (8.5-10.1); CARBON DIOXIDE 32.7 mmol/L (21.0-32.0); CREATININE - SERUM 5.7 mg/dL (0.6-1.3); PHOSPHOROUS 6.6 mg/dL (2.5-4.9); POTASSIUM - SERUM 5.2 mmol/L (3.5-5.1); PROTEIN - SERUM 7.1 g/dL (6.4-8.2)
[2017-09-08 08:36] VITALS: BP 132/74
[2017-09-08 16:39] VITALS: BP 151/98
[2017-09-08 20:00] VITALS: BP 133/82
[2017-09-09] VITALS (7 sets, daily range): BP systolic 113–181; BP diastolic 66–110
[2017-09-09 06:07] LABS: BASOPHILS 0.1 % (0-2); EOSINOPHILS 0.2 % (0-7); HEMATOCRIT 34.1 % (42.0-54.0); HEMOGLOBIN 11.6 g/dL (13.5-17.5); IMMATURE GRANULOCYTES 0.3 % (0-5); LYMPHOCYTES 8.5 % (15-50); MCH 30.5 pg (26.0-34.0); MCV 89.7 fL (80.0-100.0); MEAN PLATELET VOLUME 11.3 fL (7.4-10.4); MONOCYTES 7.2 % (2-11); NEUTROPHILS 83.7 % (40-80); PLATELET COUNT 147 10x3/uL (130-400); RDW 15.5 % (11.5-14.5)
[2017-09-09 06:13] LABS: WBC 13.1 10x3/uL (4.8-10.8)
[2017-09-09 06:28] LABS: ALBUMIN 1.7 g/dL (3.4-5.0); BILIRUBIN - TOTAL 0.62 mg/dL (0.2-1.3); CALCIUM 8.1 mg/dL (8.5-10.1); CARBON DIOXIDE 31.4 mmol/L (21.0-32.0); CREATININE - SERUM 4.4 mg/dL (0.6-1.3); PROTEIN - SERUM 6.7 g/dL (6.4-8.2)
[2017-09-09 06:31] LABS: POTASSIUM - SERUM 4.4 mmol/L (3.5-5.1)
[2017-09-10 01:28] VITALS: BP 152/86
[2017-09-10 04:14] LABS: BASOPHILS 0.2 % (0-2); EOSINOPHILS 0.9 % (0-7); HEMATOCRIT 31.8 % (42.0-54.0); HEMOGLOBIN 10.6 g/dL (13.5-17.5); IMMATURE GRANULOCYTES 0.2 % (0-5); LYMPHOCYTES 12.1 % (15-50); MCH 29.7 pg (26.0-34.0); MCHC 33.3 g/dL (31.0-37.0); MCV 89.1 fL (80.0-100.0); MEAN PLATELET VOLUME 11.2 fL (7.4-10.4); MONOCYTES 9.4 % (2-11); NEUTROPHILS 77.2 % (40-80); PLATELET COUNT 137 10x3/uL (130-400); RBC 3.57 10x6/uL (4.20-6.10); RDW 15.5 % (11.5-14.5)
[2017-09-10 04:20] LABS: WBC 9.4 10x3/uL (4.8-10.8)
[2017-09-10 04:32] LABS: ALBUMIN 1.5 g/dL (3.4-5.0); BILIRUBIN - TOTAL 0.66 mg/dL (0.2-1.3); CARBON DIOXIDE 30.3 mmol/L (21.0-32.0); CREATININE - SERUM 5.1 mg/dL (0.6-1.3); POTASSIUM - SERUM 4.3 mmol/L (3.5-5.1); PROTEIN - SERUM 6.1 g/dL (6.4-8.2)
[2017-09-10 05:39] VITALS: BP 149/93
[2017-09-10 08:16] VITALS: BP 174/100
[2017-09-10 11:25] VITALS: BP 155/93
[2017-09-10 15:31] VITALS: BP 170/110
[2017-09-10 20:00] VITALS: BP 120/70
[2017-09-11] VITALS: BP 157/93
[2017-09-11 04:00] VITALS: BP 140/80
[2017-09-11 05:37] LABS: BASOPHILS 0.3 % (0-2); EOSINOPHILS 1.4 % (0-7); HEMATOCRIT 31.9 % (42.0-54.0); HEMOGLOBIN 10.7 g/dL (13.5-17.5); IMMATURE GRANULOCYTES 0.4 % (0-5); LYMPHOCYTES 10.7 % (15-50); MCHC 33.5 g/dL (31.0-37.0); MCV 89.4 fL (80.0-100.0); MEAN PLATELET VOLUME 11.3 fL (7.4-10.4); MONOCYTES 7.1 % (2-11); NEUTROPHILS 80.1 % (40-80); PLATELET COUNT 128 10x3/uL (130-400); RBC 3.57 10x6/uL (4.20-6.10); RDW 15.6 % (11.5-14.5); WBC 7.9 10x3/uL (4.8-10.8)
[2017-09-11 05:59] LABS: ALBUMIN 1.7 g/dL (3.4-5.0); ANION GAP 11.6 mmol/L (8-16); BILIRUBIN - TOTAL 0.77 mg/dL (0.2-1.3); CALCIUM 8.2 mg/dL (8.5-10.1); CREATININE - SERUM 5.7 mg/dL (0.6-1.3); POTASSIUM - SERUM 4.6 mmol/L (3.5-5.1); PROTEIN - SERUM 5.6 g/dL (6.4-8.2)
[2017-09-11 08:57] VITALS: BP 132/72
[2017-09-11 12:32] VITALS: BP 120/60
[2017-09-11 16:09] VITALS: BP 155/98
[2017-09-12] VITALS: BP 153/89
[2017-09-12 04:00] VITALS: BP 145/79
[2017-09-12 05:33] LABS: BASOPHILS 0.2 % (0-2); EOSINOPHILS 0.5 % (0-7); HEMATOCRIT 30.3 % (42.0-54.0); IMMATURE GRANULOCYTES 0.3 % (0-5); LYMPHOCYTES 5.1 % (15-50); MCH 30.3 pg (26.0-34.0); MEAN PLATELET VOLUME 11.1 fL (7.4-10.4); MONOCYTES 10.8 % (2-11); NEUTROPHILS 83.1 % (40-80); PLATELET COUNT 112 10x3/uL (130-400); RDW 15.9 % (11.5-14.5); WBC 9.2 10x3/uL (4.8-10.8)
[2017-09-12 05:34] LABS: MCV 91.8 fL (80.0-100.0)
[2017-09-12 05:42] LABS: ALBUMIN 1.5 g/dL (3.4-5.0); BILIRUBIN - TOTAL 0.47 mg/dL (0.2-1.3); CARBON DIOXIDE 30.3 mmol/L (21.0-32.0); CREATININE - SERUM 3.7 mg/dL (0.6-1.3); PHOSPHOROUS 3.6 mg/dL (2.5-4.9); POTASSIUM - SERUM 4.3 mmol/L (3.5-5.1); PROTEIN - SERUM 5.9 g/dL (6.4-8.2)
[2017-09-12 08:55] VITALS: BP 170/91
[2017-09-12 12:09] VITALS: BP 159/89
[2017-09-12 16:02] VITALS: BP 150/84
[2017-09-12 20:15] VITALS: BP 119/64
[2017-09-13 00:05] VITALS: BP 147/72
[2017-09-13 04:41] LABS: BASOPHILS 0.2 % (0-2); EOSINOPHILS 2.6 % (0-7); HEMOGLOBIN 10.3 g/dL (13.5-17.5); IMMATURE GRANULOCYTES 0.2 % (0-5); LYMPHOCYTES 9.6 % (15-50); MCH 29.9 pg (26.0-34.0); MCHC 32.2 g/dL (31.0-37.0); MCV 92.8 fL (80.0-100.0); MEAN PLATELET VOLUME 10.5 fL (7.4-10.4); MONOCYTES 6.6 % (2-11); NEUTROPHILS 80.8 % (40-80); PLATELET COUNT 120 10x3/uL (130-400); RBC 3.45 10x6/uL (4.20-6.10); RDW 16.2 % (11.5-14.5)
[2017-09-13 04:42] LABS: WBC 5.7 10x3/uL (4.8-10.8)
[2017-09-13 05:02] LABS: ALBUMIN 1.6 g/dL (3.4-5.0); ANION GAP 8.2 mmol/L (8-16); BILIRUBIN - TOTAL 0.7 mg/dL (0.2-1.3); CALCIUM 8.6 mg/dL (8.5-10.1); CREATININE - SERUM 4.4 mg/dL (0.6-1.3); POTASSIUM - SERUM 4.2 mmol/L (3.5-5.1); PROTEIN - SERUM 6.1 g/dL (6.4-8.2)
[2017-09-13 05:25] VITALS: BP 146/72
[2017-09-13 08:46] VITALS: BP 103/66
[2017-09-13 12:06] VITALS: BP 106/63
[2017-09-13 16:20] VITALS: BP 64/27
[2017-09-13 20:05] VITALS: BP 113/63
[2017-09-14 01:29] VITALS: BP 134/78
[2017-09-14 05:35] VITALS: BP 143/72
[2017-09-14 06:30] LABS: ALBUMIN 1.6 g/dL (3.4-5.0); BILIRUBIN - TOTAL 0.76 mg/dL (0.2-1.3); CALCIUM 8.1 mg/dL (8.5-10.1); CARBON DIOXIDE 28.7 mmol/L (21.0-32.0); CREATININE - SERUM 5.2 mg/dL (0.6-1.3); POTASSIUM - SERUM 4.7 mmol/L (3.5-5.1); PROTEIN - SERUM 5.9 g/dL (6.4-8.2)
[2017-09-14 06:33] LABS: PHOSPHOROUS 5.4 mg/dL (2.5-4.9)
[2017-09-14 08:27] VITALS: BP 126/73
[2017-09-15 15:25] LABS: FUNGUS CULTURE RESULT 1 Candida albicans (()); FUNGUS MYCOLOGY CULTURE Final report (())
[2017-10-22 07:34] LABS: ACID FAST CULTURE Negative (()); ACID FAST SMEAR Negative (())
== END 2017-09-14 12:58 | disposition home health service (06) | DRG 177 ==
LOC: D.ER 08:44 → D.M2 10:29 → D.EDHOLD 10:29 → D.M2 13:15
PROVIDERS: Emergency Medicine; Family Medicine; Internal Medicine; Internal Medicine Gastroenterology; Internal Medicine Hematology & Oncology; Internal Medicine Nephrology; Internal Medicine Pulmonary Disease
PROC: 0DH63UZ Insertion of Feeding Device into Stomach, Percutaneous Approach (ICD-10-PCS; principal; 2017-08-25 11:00)
PROC: 02HV33Z Insertion of Infusion Device into Superior Vena Cava, Percutaneous Approach (ICD-10-PCS; 2017-08-27)
PROC: B548ZZA Ultrasonography of Superior Vena Cava, Guidance (ICD-10-PCS; 2017-08-27)
PROC: 0B928ZZ Drainage of Carina, Via Natural or Artificial Opening Endoscopic (ICD-10-PCS; 2017-09-01)
PROC: 0B948ZZ Drainage of Right Upper Lobe Bronchus, Via Natural or Artificial Opening Endoscopic (ICD-10-PCS; 2017-09-01)
PROC: 0B988ZZ Drainage of Left Upper Lobe Bronchus, Via Natural or Artificial Opening Endoscopic (ICD-10-PCS; 2017-09-01)
PROC: 0B918ZZ Drainage of Trachea, Via Natural or Artificial Opening Endoscopic (ICD-10-PCS; 2017-09-01)
PROC: 0B958ZZ Drainage of Right Middle Lobe Bronchus, Via Natural or Artificial Opening Endoscopic (ICD-10-PCS; 2017-09-01)
PROC: 0B938ZZ Drainage of Right Main Bronchus, Via Natural or Artificial Opening Endoscopic (ICD-10-PCS; 2017-09-03)
PROC: 0B978ZZ Drainage of Left Main Bronchus, Via Natural or Artificial Opening Endoscopic (ICD-10-PCS; 2017-09-03)
PROC: 0B968ZZ Drainage of Right Lower Lobe Bronchus, Via Natural or Artificial Opening Endoscopic (ICD-10-PCS; 2017-09-03)
PROC: 0B9B8ZZ Drainage of Left Lower Lobe Bronchus, Via Natural or Artificial Opening Endoscopic (ICD-10-PCS; 2017-09-03)
PROC: 0B998ZZ Drainage of Lingula Bronchus, Via Natural or Artificial Opening Endoscopic (ICD-10-PCS; 2017-09-03)
PROC: 0JH63XZ Insertion of Tunneled Vascular Access Device into Chest Subcutaneous Tissue and Fascia, Percutaneous Approach (ICD-10-PCS; 2017-09-03)
PROC: B5181ZA Fluoroscopy of Superior Vena Cava using Low Osmolar Contrast, Guidance (ICD-10-PCS; 2017-09-03)
PROC: 02HV33Z Insertion of Infusion Device into Superior Vena Cava, Percutaneous Approach (ICD-10-PCS; 2017-09-03)
PROC: 0B928ZZ Drainage of Carina, Via Natural or Artificial Opening Endoscopic (ICD-10-PCS; 2017-09-03)
PROC: 0B948ZZ Drainage of Right Upper Lobe Bronchus, Via Natural or Artificial Opening Endoscopic (ICD-10-PCS; 2017-09-03)
PROC: 0B988ZZ Drainage of Left Upper Lobe Bronchus, Via Natural or Artificial Opening Endoscopic (ICD-10-PCS; 2017-09-03)
PROC: 0B918ZZ Drainage of Trachea, Via Natural or Artificial Opening Endoscopic (ICD-10-PCS; 2017-09-03)
PROC: 0B958ZZ Drainage of Right Middle Lobe Bronchus, Via Natural or Artificial Opening Endoscopic (ICD-10-PCS; 2017-09-03)
PROC: 0B938ZZ Drainage of Right Main Bronchus, Via Natural or Artificial Opening Endoscopic (ICD-10-PCS; 2017-09-03)
PROC: 0B978ZZ Drainage of Left Main Bronchus, Via Natural or Artificial Opening Endoscopic (ICD-10-PCS; 2017-09-03)
PROC: 0B968ZZ Drainage of Right Lower Lobe Bronchus, Via Natural or Artificial Opening Endoscopic (ICD-10-PCS; 2017-09-03)
PROC: 0B9B8ZZ Drainage of Left Lower Lobe Bronchus, Via Natural or Artificial Opening Endoscopic (ICD-10-PCS; 2017-09-03)
PROC: 0B998ZZ Drainage of Lingula Bronchus, Via Natural or Artificial Opening Endoscopic (ICD-10-PCS; 2017-09-03)
DX: J15.212 Pneumonia due to Methicillin resistant Staphylococcus aureus (principal); E43 Unspecified severe protein-calorie malnutrition; N17.0 Acute kidney failure with tubular necrosis; K76.7 Hepatorenal syndrome; J44.1 Chronic obstructive pulmonary disease with (acute) exacerbation; J44.0 Chronic obstructive pulmonary disease with (acute) lower respiratory infection; Z68.1 Body mass index [BMI] 19.9 or less, adult; D61.818 Other pancytopenia; E87.1 Hypo-osmolality and hyponatremia; D68.9 Coagulation defect, unspecified; N39.0 Urinary tract infection, site not specified; R74.8 Abnormal levels of other serum enzymes; K58.9 Irritable bowel syndrome, unspecified; Z66 Do not resuscitate; K57.90 Diverticulosis of intestine, part unspecified, without perforation or abscess without bleeding; J30.9 Allergic rhinitis, unspecified; F41.9 Anxiety disorder, unspecified; F51.01 Primary insomnia; N40.0 Benign prostatic hyperplasia without lower urinary tract symptoms; E03.9 Hypothyroidism, unspecified; K21.9 Gastro-esophageal reflux disease without esophagitis; R13.10 Dysphagia, unspecified; T17.990A Other foreign object in respiratory tract, part unspecified in causing asphyxiation, initial encounter; Z93.0 Tracheostomy status; E87.5 Hyperkalemia; D50.9 Iron deficiency anemia, unspecified; N20.0 Calculus of kidney; Z85.21 Personal history of malignant neoplasm of larynx